=== PATIENT | female | born 2005 | race African-American/Black ===

== ENCOUNTER 2024-09-15 14:43 | Emergency (ER) | payer BC, SELFPAY ==
[2024-09-15 15:08] VITALS: BP 151/87; PULSE 99; RESP 16; TEMP 36.8; O2SAT 98; BMI 25.2
--- NOTE | 2024-09-15 15:09 | ED.GENADULT ---
HPI - General Adult General Chief complaint: Abdominal Pain Stated complaint: blood in stools abd pain Time Seen by Provider: 09/15/24 18:02 Source: patient Limitations: no limitations History of Present Illness ED Provider: Marilyn Valle PA-C HPI narrative: 18-year-old female presents with rectal bleeding. Patient states she has been having episodes of bright red blood per rectum after having a bowel movement. Patient states she notices the blood on the toilet paper. Denies rectal pain, abdominal pain, nausea vomiting or constipation. Denies known hemorrhoids. Related Data Allergies Allergy/AdvReac Type Severity Reaction Status Date / Time No Known Allergies Allergy Verified 09/15/24 15:09 Review of Systems Review of Systems: Yes all other systems are reviewed and are negative Constitutional: Constitutional: Denies fatigue and Denies fever(s) Cardiovascular: Cardiovascular: Denies chest pain Respiratory: Respiratory: Denies cough Gastrointestinal: Gastrointestinal: Denies abdominal pain, Reports hematochezia, Denies nausea and Denies vomiting Endocrine: Endocrine: Denies fatigue PMF Past Medical History Attestation statement: The following information was validated with the patient. Social History Social History Advance Directives: No Advance Directives Information Provided: No Do you have a plan to hurt others: No Plan Physical Exam ED Vital Signs: Vital Signs - 24 hr 09/15/24 15:08 Temperature 98.3 F Pulse Rate 99 Respiratory Rate 16 Blood Pressure 151/87 H Pulse Oximetry 98 Oxygen Delivery Method Room Air BMI result Body Mass Index 25.2 Const Other: Alert well-appearing Orientation/consciousness: patient oriented x3 Resp Effort & Inspection: normal respiratory effort Cardio Other: Normal peripheral perfusion GI Other: Soft nontender nondistended, per rectal exam, no external hemorrhoids no palpable internal hemorrhoids, stool brown no active bleeding Skin Other: Warm dry no rash Neuro General: patient oriented x3, gait normal, no focal motor deficits and CN's II-XI intact bilaterally Psych Other: Cooperative Medical Decision Making Medical Decision Making [facility] Narrative: 18-year-old female presents with rectal bleeding. Patient states she has been having episodes of bright red blood per rectum after having a bowel movement. Patient states she notices the blood on the toilet paper. Denies rectal pain, abdominal pain, nausea vomiting or constipation. Denies known hemorrhoids. No chronic issues History: Per patient I have considered the following differential diagnoses: External hemorrhoids, internal hemorrhoids, diverticulosis, colitis, polyps Plan: Screening labs obtained, her H&H are stable, she has no abnormalities, no blood appreciated on exam, she has no hemorrhoids. We will send the patient with return precautions, and provide a contact for GI as an outpatient. I have independently reviewed the following tests: Labs: No leukocytosis, not anemic, no electrolyte abnormality, guaiac negative Lab Data 09/15/24 15:23 09/15/24 15:23 Labs: Lab Results 09/15/24 09/15/24 Range/Units 15:23 19:02 WBC 6.9 (4.8-10.8) X10*3/uL RBC 4.08 L (4.20-5.50) X10*6/uL Hgb 10.2 L (12.0-16.0) g/dl Hct 31.8 L (37.0-47.0) % MCV 77.9 L (80.0-98.0) fL MCH 25.0 L (27.0-33.0) pg MCHC 32.1 (31.0-35.0) g/dl RDW 16.7 H (11.0-16.0) % Plt Count 289 (160-400) X10*3/uL MPV 9.6 (9.4-12.3) fL Immature Gran % (Auto) 0.3 (0.0-0.4) % Neut % (Auto) 51.0 (45-73) % Lymph % (Auto) 39.7 (20-40) % Glascock % (Auto) 7.7 (2-11) % Eos % (Auto) 0.7 (0-4) % Baso % (Auto) 0.6 (0-2) % Lymph # (Auto) 2.7 (1.2-4.9) X10*3/uL Glascock # (Auto) 0.5 (0.1-1.2) X10*3/uL Eos # (Auto) 0.1 (0.0-0.4) X10*3/uL Baso # (Auto) 0.0 (0.0-0.2) X10*3/uL Abs Immat Gran (auto) 0.02 (0.00-0.03) X10*3/uL Absolute Neuts (auto) 3.5 (2.0-8.3) x10*3/uL Absolute Nucleated RBC 0.000 (0.0-0.012) X10*3/uL Nucleated RBC % (auto) 0.0 (0.0-0.2) /100WBC Sodium 136 (135-145) mmol/L Potassium 3.8 (3.3-5.1) mmol/L Chloride 107 (96-108) mmol/L Carbon Dioxide 21 L (22-29) mmol/L Anion Gap 12 (12-20) BUN 11 (9-16) mg/dL Creatinine 0.66 (0.5-1.4) mg/dL Estim Creat Clear Calc 99.6 Estimated GFR > 60 Random Glucose 83 (60-115) mg/dL Calcium 9.1 (8.4-10.2) mg/dL Total Bilirubin 0.3 (0.0-1.0) mg/dL AST 24 (5-31) U/L ALT 18 (0-31) U/L Alkaline Phosphatase 67 (39-117) U/L Total Protein 7.8 (6.5-8.0) g/dL Albumin 4.8 (3.5-5.0) g/dL Beta HCG, Quant < 2 mIU/mL Stool Occult Blood NEGATIVE (NEGATIVE) Discharge Plan Discharge Clinical Impression: Bright red rectal bleeding Patient Disposition: Home, Self-Care Instructions: Rectal Bleeding (ED) Additional Instructions: All of your screening labs including your blood counts were completely normal, there was no evidence of rectal bleeding per the exam and the card we sent to the lab. I am providing you with a contact for our Gastroenterology Service if you develop additional episodes. Return precautions for the onset of severe constant abdominal pain, large volume bloody bowel movements, fever or intractable nausea vomiting. If you develop any of these symptoms, seek medical attention. Referrals: Lisa Holman MD [Physician, Gastroenterology] Referral Note: Report of bright red blood per rectum, no obvious hemorrhoids on exam, no abdominal pain, H&H stable Interventions: ED Discharge Assessment Last Done: 09/15/24 20:20 Discharge Date/Time: 09/15/24 20:21 Print Language: [place]
[2024-09-15 15:27] LABS: MANUAL DIFF FLAG NO
[2024-09-15 15:31] LABS: Hematocrit 31.8 % (37.0-47.0); Hemoglobin 10.2 g/dl (12.0-16.0); Imm Gran Abs Auto 0.02 X10*3/uL (0.00-0.03); Imm Gran Pct Auto 0.3 % (0.0-0.4); Lymphocytes Absolute Auto 2.7 X10*3/uL (1.2-4.9); Mean Corpuscular HGB Conc 32.1 g/dl (31.0-35.0); Mean Corpuscular Hemoglobin 25.0 pg (27.0-33.0); Mean Corpuscular Volume 77.9 fL (80.0-98.0); NRBC Abs Auto 0.000 X10*3/uL (0.0-0.012); NRBC Pct Auto 0.0 /100WBC (0.0-0.2); Platelet Count 289 X10*3/uL (160-400); Red Blood Count 4.08 X10*6/uL (4.20-5.50); White Blood Count 6.9 X10*3/uL (4.8-10.8)
[2024-09-15 15:54] LABS: Alanine Aminotransferase 18 U/L (0-31); Albumin Level 4.8 g/dL (3.5-5.0); Alkaline Phosphatase 67 U/L (39-117); Anion Gap 12 (12-20); Aspartate Amino Transferase 24 U/L (5-31); Blood Urea Nitrogen 11 mg/dL (9-16); Calcium 9.1 mg/dL (8.4-10.2); Carbon Dioxide 21 mmol/L (22-29); Chloride 107 mmol/L (96-108); Creatinine Clr Calc Pharmacy 99.6; Estimated Glomerular Filt Rate > 60; Potassium 3.8 mmol/L (3.3-5.1); Sodium 136 mmol/L (135-145); Total Protein 7.8 g/dL (6.5-8.0)
[2024-09-15 19:11] LABS: OBS Int Ctl Valid YES; OBS1 NEGATIVE (NEGATIVE)
[2024-09-15 20:19] VITALS: BP 125/64; PULSE 67; RESP 18; TEMP 36.6; O2SAT 100
[2024-09-15 20:20] VITALS: BP 125/64; PULSE 67; RESP 18; TEMP 36.6; O2SAT 100
== END 2024-09-15 20:21 | disposition home or self-care (01) ==
PROVIDERS: Physician Assistant; Emergency Provider Emergency Medicine
DX: K62.5 Hemorrhage of anus and rectum (principal)
CPT/HCPCS: 36415; 80053; 82272; 84702; 85025; 99283